=== PATIENT | female | born 1990 | race Caucasian/White ===

== ENCOUNTER 2021-02-10 05:14 | Inpatient (IN) ==
[2021-02-10] MEDS ORDERED: Metoclopramide 10 MG/2 ML VIAL IVP PRN ×2 (05:24→12:27)
[2021-02-10] MEDS ORDERED: Famotidine 20 MG/2 ML VIAL IVP ONE (05:24)
[2021-02-10] MEDS ORDERED: Famotidine 20 MG/2 ML VIAL IVP PRN (05:24)
[2021-02-10] MEDS ORDERED: Oxytocin 20 units/ LR 1000 mL 20 UNIT/1,000 ML BAG IVC ONE (05:24)
[2021-02-10] MEDS ORDERED: Ondansetron 4 MG/2 ML VIAL IVP PRN ×2 (05:24→12:27)
[2021-02-10] MEDS ORDERED: CeFAZolin Syr 3,000MG/30 ML 3,000 MG/30 ML SYRINGE IVPB ONE (05:24)
[2021-02-10] MEDS ORDERED: Naloxone 0.4 MG/ML INJ IVP PRN (05:24)
[2021-02-10] MEDS ORDERED: Metoclopramide 10 MG/2 ML VIAL IVP ONE (05:24)
[2021-02-10] MEDS ORDERED: Ringers Solution, Lactated 1,000 ML IVC SCH (05:30)
[2021-02-10] MEDS ORDERED: Oxytocin 20 units/ LR 1000 mL 20 UNIT/1,000 ML BAG IVC SCH ×2 (05:30→12:27)
[2021-02-10] MEDS ORDERED: Ringers Solution, Lactated 1,000 ML ONE (05:58)
[2021-02-10 06:32] LABS: Basophils % 0.4 %; Eosinophils # 0.1 K/mcL (0.0-0.6); Eosinophils % 0.8 %; Hematocrit 40.4 % (35.3-44.9); Hemoglobin 13.7 g/dL (11.5-15.4); Immature Granulocytes % 0.9 % (0-4); Lymphocytes # 2.2 K/mcL (0.6-4.6); Lymphocytes % 27.3 %; Mean Corpuscular HGB Conc 33.9 g/dL (31.6-35.5); Mean Corpuscular Volume 82.6 fL (83.0-100.0); Mean Platelet Volume 10.6 fL (9.4-12.4); Monocytes # 0.6 K/mcL (0.0-1.3); Monocytes % 7.1 %; Platelet Count 213 K/mcL (140-400); Red Blood Count 4.89 M/mcL (3.82-4.97); Red Cell Distribution Width 14.1 % (11.5-14.5); Segmented Neutrophils % 63.5 %; White Blood Count 7.9 K/mcL (4.3-11.1)
[2021-02-10 06:40] LABS: BUN/Creatinine Ratio 18 (6-26); Blood Urea Nitrogen 8 mg/dL (6-20); Carbon Dioxide 21 mEq/L (23-29); Chloride 105 mEq/L (98-107); Glucose 90 mg/dL (70-105); Osmolality,Calculated 278 (280-300); Potassium 3.7 mEq/L (3.5-5.1); Sodium 135 mEq/L (136-145); eGFR For African Americans > 60 (> 60); eGFR For Non-African Americans > 60 (> 60)
[2021-02-10 07:54] LABS: Influenza A PCR Negative (Negative); Influenza B PCR Negative (Negative); Resp. Syncytial Virus PCR Negative (Negative)
[2021-02-10 07:58] LABS: SARS-CoV-2 by PCR (In House) Negative (Negative)
[2021-02-10 08:26] LABS: Amphetamine Screen,Urine Negative ng/mL (Cutoff=1000); Barbiturate Screen,Urine Negative ng/mL (Cutoff=200); Benzodiazepines Screen,Urine Negative ng/mL (Cutoff=200); Cannabinoid Screen,Urine Negative ng/mL (Cutoff = 50); Cocaine Screen,Urine Negative ng/mL (Cutoff= 300); Opiate Screen,Urine Negative ng/mL (Cutoff=300); Phencyclidine Screen,Urine Negative ng/mL (Cutoff=25)
[2021-02-10] MEDS: *HR* Nalbuphine 10 MG/ML AMPUL IV PRN ×2 (10:32→11:09)
[2021-02-10] MEDS ORDERED: *HR* Nalbuphine 10 MG/ML AMPUL IV ONE (13:05)
[2021-02-10] MEDS: Acetaminophen 325 MG TABLET PO SCH ×2 (13:18→20:05)
[2021-02-10 14:16] LABS: Alanine Aminotransferase 9 Units/L (7-52); Aspartate Amino Transferase 12 Units/L (13-39); Lactate Dehydrogenase 109 Units/L (140-271); Uric Acid 3.8 mg/dL (2.3-7.6)
[2021-02-10 14:17] LABS: Creatinine,Urine 70 mg/dL; Protein/Creatinine Ratio,Urine 0.31 mg/mg (0.00-0.20)
[2021-02-10] MEDS: Ketorolac 30 MG/ML VIAL IVP SCH (15:57)
[2021-02-10] MEDS: Simethicone 80 MG TAB.CHEW PO SCH ×2 (15:58→20:05)
[2021-02-10 20:11] LABS: Basophils % 0.2 %; Eosinophils # 0.1 K/mcL (0.0-0.6); Eosinophils % 0.6 %; Hematocrit 32.6 % (35.3-44.9); Immature Granulocytes % 0.5 % (0-4); Lymphocytes # 1.8 K/mcL (0.6-4.6); Lymphocytes % 20.5 %; Mean Corpuscular HGB Conc 32.8 g/dL (31.6-35.5); Mean Corpuscular Hemoglobin 27.9 pg (28.0-33.3); Mean Corpuscular Volume 85.1 fL (83.0-100.0); Mean Platelet Volume 10.7 fL (9.4-12.4); Monocytes # 0.5 K/mcL (0.0-1.3); Monocytes % 6.3 %; Neutrophils # 6.2 K/mcL (1.6-8.9); Platelet Count 172 K/mcL (140-400); Red Blood Count 3.83 M/mcL (3.82-4.97); Red Cell Distribution Width 14.1 % (11.5-14.5); Segmented Neutrophils % 71.9 %; White Blood Count 8.6 K/mcL (4.3-11.1)
[2021-02-10 20:13] LABS: Hemoglobin 10.7 g/dL (11.5-15.4)
[2021-02-11] MEDS: Ketorolac 30 MG/ML VIAL IVP SCH ×2 (00:19→06:41)
[2021-02-11] MEDS: Acetaminophen 325 MG TABLET PO SCH ×2 (00:22→06:41)
[2021-02-11 05:20] VITALS: O2SAT 98
[2021-02-11 05:54] LABS: Basophils % 0.5 %; Eosinophils # 0.1 K/mcL (0.0-0.6); Eosinophils % 1.1 %; Hematocrit 29.1 % (35.3-44.9); Hemoglobin 9.7 g/dL (11.5-15.4); Immature Granulocytes % 0.4 % (0-4); Lymphocytes # 1.9 K/mcL (0.6-4.6); Lymphocytes % 22.1 %; Mean Corpuscular HGB Conc 33.3 g/dL (31.6-35.5); Mean Corpuscular Hemoglobin 28.6 pg (28.0-33.3); Mean Corpuscular Volume 85.8 fL (83.0-100.0); Mean Platelet Volume 10.8 fL (9.4-12.4); Monocytes # 0.6 K/mcL (0.0-1.3); Monocytes % 7.4 %; Neutrophils # 5.8 K/mcL (1.6-8.9); Platelet Count 160 K/mcL (140-400); Red Blood Count 3.39 M/mcL (3.82-4.97); Red Cell Distribution Width 14.4 % (11.5-14.5); Segmented Neutrophils % 68.5 %; White Blood Count 8.5 K/mcL (4.3-11.1)
[2021-02-11 08:59] VITALS: BP 115/70; PULSE 87; TEMP 98
[2021-02-11] MEDS ORDERED: Prenatal Vit/FA 1 EACH TABLET PO SCH (09:00)
[2021-02-11] MEDS ORDERED: Ibuprofen 600 MG TABLET PO SCH (09:50)
== END 2021-02-11 14:13 | disposition home or self-care (01) | DRG 540 ==
LOC: 1NENULAB 05:14 → 1NENUOBS 12:25
PROVIDERS: ADMIT Obstetrics & Gynecology; ATTEND Obstetrics & Gynecology